=== PATIENT | female | born 1995 | race Caucasian/White ===

== ENCOUNTER 2017-03-02 23:34 | Emergency (ER) | payer OTHER ==
[~2017-03-02 23:34] MED LIST: BACTRIM 400-801 TA1; BACTRIM DS TABL1 TA2 PO; FIORICET 50-321 EACH PO; HYDROCODON-ACE1 EAC5 PO; KLONOPIN0.5 MG PO; METRONIDAZOLE; MOTRIN400 MG PO; MULTIVITAMIN1 UDCAP PO; MUSCLE RELAXER; NAPROSYN250 M1 PO; NAPROSYN500 MG PO; NO MEDICATIONS; PHENERGAN25 MG PO; PRENATAL1 TA1 PO; PYRIDIUM100 MG PO; ROBAXIN 750750 MG PO; SYNTHROID0.05 MG; SYNTHROID0.2 MG; TOPAMAX PO; [UNRECOGNIZED DRUG - REMARK]
== END 2017-03-03 00:20 | disposition home or self-care (01) ==
LOC: SED 23:34
DX: K64.2 Third degree hemorrhoids (principal); G43.909 Migraine, unspecified, not intractable, without status migrainosus; Z88.0 Allergy status to penicillin; Z79.899 Other long term (current) drug therapy
CPT/HCPCS: 96372; 99283; J1040

== ENCOUNTER 2017-03-07 19:57 | Emergency (ER) | payer OTHER ==
--- NOTE | ~2017-03-07 | CR63 ---
[facility] A Service of [facility] & [facility] RADIOLOGY TEXT RESULTS PATIENT: GLEN BUTT LOCATION: SED : [birth year] UNIT #: [id number] AGE: [address]: Kain Hopson MD SEX: F ORDER DR: [id number] [place] [id number] E MR#: [id number] Acc #: [id number] NAME: GLEN BUTT : 1995 SEX: F STUDY DATE/TIME: 03/07/2017 20:41 UNIT: SED ROOM: STUDY DESCRIPTION: CR Chest 2 View Attending Physician: Kain Hopson M.D. Ordering Physician: Kain Hopson M.D. Primary Care Physician: Alex Case M.D. MEDICAL IMAGING REPORT This report is preliminary unless electronic signature is present. EXAM PA and lateral chest radiograph INDICATIONS Fever, chills and cough for 4 days. FINDINGS Heart size is within normal limits. Left lung appears clear. No pneumothorax or pleural effusion is seen. Patient is noted to have some patchy right basilar atelectasis versus infiltrate. IMPRESSION Patchy right basilar atelectasis versus infiltrate. Dictated by... Carol Lewis M.D. THIS IS AN ELECTRONICALLY VERIFIED REPORT Carol Lewis M.D. at 03/08/2017 10:45 AM AFF/pcl TD: 03/07/2017 21:42 JOB #: [id number] MEDICAL IMAGING REPORT Page 1 of 1
[2017-03-07 20:11] LABS: URINE SOURCE CLEAN CATCH
[2017-03-07 20:14] LABS: BASOPHIL# 0.1 X10e3 (0-0.3); BASOPHIL% 0.8 % (0-2.5); HEMATOCRIT 40.1 % (35.0-45.0); HEMOGLOBIN 13.4 gm/dL (12.0-16.0); LYMPHOCYTE# 1.4 X10e3 (1.0-3.5); MEAN CELL VOLUME 90.2 FL (83-96); MEAN CORPUSCULAR HEMOGLOBIN 30.1 PG (28-34); MEAN CORPUSCULAR HGB CONC 33.4 g/dL (30-36); MEAN PLATELET VOLUME 10.7 FL (6.5-11.5); MONOCYTE# 1.6 X10e3 (0-1.0); NEUTROPHIL# 11.3 X10e3 (1.5-7.1); NEUTROPHIL% 78.2 % (40-75); PLATELET COUNT 179 X10e3 (140-420); RED BLOOD COUNT 4.45 X10e (3.90-5.30); RED CELL DISTRIBUTION WIDTH 13.9 % (11.0-15.5); WHITE BLOOD COUNT 14.4 X10e3 (4.0-10.5)
[2017-03-07 20:15] LABS: URINE APPEARANCE TURBID; URINE BILIRUBIN NEG (NEG); URINE BLOOD TRACE-INTACT (NEG); URINE COLOR YELLOW; URINE GLUCOSE NEG (NORM); URINE KETONE 1+ (NEG); URINE LEUKOCYTE ESTERASE 2+ (NEG); URINE NITRATE POS (NEG); URINE PH 7.5 (5-8); URINE PROTEIN 2+ (NEG); URINE SPECIFIC GRAVITY 1.015 (1.003-1.035)
[2017-03-07 20:18] LABS: CULTURE INDICATED? YES; MICRO INDICATED? YES; URINE BACTERIA 2+ (NEG); URINE MUCUS PRESENT; URINE SQUAMOUS EPITHELIAL CELL OCCAS /[HPF]; URINE WBC 25-50 /[HPF] (0-5)
[2017-03-07 20:18] LABS: DIFF IND NO
[2017-03-07 20:27] LABS: INFLUENZA A NEG (NEG); INFLUENZA B NEG (NEG)
[2017-03-07 20:33] LABS: BUN/CREATININE RATIO 15.55; CREATININE SERUM 0.9 mg/dL (0.6-1.4); GLOM FILT RATE Estimated 90.2 mL/min (>60); POTASSIUM 3.4 mmol/L (3.5-5.1)
== END 2017-03-07 22:27 | disposition home or self-care (01) ==
LOC: SED 19:57
PROVIDERS: Emergency Medicine
DX: N10 Acute pyelonephritis (principal); F41.9 Anxiety disorder, unspecified
CPT/HCPCS: 36415; 71020; 80048; 81003; 83605; 84703; 85025; 86308; 87040; 87086; 87088; 87186; 87651; 87804; 96361; 96365; 96375; 99284; J0696; J2405

== ENCOUNTER 2017-04-26 21:14 | Emergency (ER) | payer OTHER | END 2017-04-26 22:30 | disposition home or self-care (01) | LOC: SED 21:14 | DX: S39.012A Strain of muscle, fascia and tendon of lower back, initial encounter (principal); G43.909 Migraine, unspecified, not intractable, without status migrainosus; Z88.0 Allergy status to penicillin; Z79.899 Other long term (current) drug therapy; X58.XXXA Exposure to other specified factors, initial encounter | CPT/HCPCS: 96372; 99283; J1885 ==

== ENCOUNTER 2017-05-21 15:09 | Emergency (ER) | payer OTHER ==
[2017-05-21 15:39] LABS: URINE SOURCE CLEAN CATCH
[2017-05-21 15:54] LABS: URINE APPEARANCE CLEAR; URINE BILIRUBIN NEG (NEG); URINE BLOOD 3+ (NEG); URINE COLOR YELLOW; URINE GLUCOSE NEG (NEG); URINE KETONE 1+ (NEG); URINE LEUKOCYTE ESTERASE 1+ (NEG); URINE NITRATE NEG (NEG); URINE PH 6.5 (5-8); URINE PROTEIN NEG (NEG)
[2017-05-21 15:57] LABS: CULTURE INDICATED? YES; URBCS1 AUWI 0-2 /[HPF] (0-2); URINE BACTERIA AUWI 1+ (NEGATIVE); URINE SQUAMOUS EPITHELIAL CELL OCC /[HPF]
[2017-05-21 17:29] LABS: BASOPHIL% 0.4 % (0-2.5); EOSINOPHIL% 0.1 % (0.0-7.0); HEMATOCRIT 35.9 % (35.0-45.0); LYMPHOCYTE# 1.6 X10e3 (1.0-3.5); LYMPHOCYTE% 17.5 % (17.0-45.0); MEAN CELL VOLUME 88.6 FL (83-96); MEAN CORPUSCULAR HEMOGLOBIN 29.7 PG (28-34); MEAN CORPUSCULAR HGB CONC 33.5 g/dL (30-36); MEAN PLATELET VOLUME 9.7 FL (6.5-11.5); MONOCYTE# 0.8 X10e3 (0-1.0); MONOCYTE% 8.6 % (3.0-12.0); NEUTROPHIL# 6.5 X10e3 (1.5-7.1); NEUTROPHIL% 73.4 % (40-75); PLATELET COUNT 358 X10e3 (140-420); RED BLOOD COUNT 4.05 X10e (3.90-5.30); RED CELL DISTRIBUTION WIDTH 13.2 % (11.0-15.5); WHITE BLOOD COUNT 8.9 X10e3 (4.0-10.5)
[2017-05-21 17:34] LABS: DIFF IND NO
[2017-05-21 17:41] LABS: ALBUMIN SERUM 4.1 g/dL (3.5-5.0); BILIRUBIN, DIRECT 0.1 mg/dL (0.0-0.2); BILIRUBIN,INDIRECT 0.6 mg/dL (0.0-0.9); BILIRUBIN,TOTAL 0.7 mg/dL (0.2-2.0); BUN/CREATININE RATIO 13.33; CALCIUM SERUM 9.5 mg/dL (8.4-10.2); CREATININE SERUM 0.9 mg/dL (0.6-1.4); GLOM FILT RATE Estimated 90.2 mL/min (>60); POTASSIUM 3.8 mmol/L (3.5-5.1); PROTEIN TOTAL SERUM 8.3 g/dL (6.0-8.3)
== END 2017-05-21 18:04 | disposition home or self-care (01) ==
LOC: CED 15:09
DX: N30.00 Acute cystitis without hematuria (principal); E86.0 Dehydration; R11.2 Nausea with vomiting, unspecified; R10.9 Unspecified abdominal pain; G43.909 Migraine, unspecified, not intractable, without status migrainosus; Z88.0 Allergy status to penicillin
CPT/HCPCS: 36415; 80048; 80076; 81003; 83690; 84703; 85025; 87086; 87088; 87186; 96365; 96375; 99284; J0696; J1885; J2405